=== PATIENT | male | born 1980 | race African-American/Black ===

== ENCOUNTER 2020-09-19 23:26 | Emergency (ER) | payer BC ==
[~2020-09-19] VITALS: Ht 170.2 cm; Wt 50.1 kg
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
--- NOTE | 2020-09-20 00:25 | RAD ---
Single view chest dated 09/20/2020: No comparison available. Clinical Indication: Shortness of breath and chest pain. Findings: Single upright portable exam of the chest was performed. Heart size and mediastinal contours are with in normal limits given technique. The lungs are clear without evidence of focal consolidation. Vascul ar interstitium is within normal limits. Impression:: Negative portable chest. Electronically signed by: Adolfo Valente MD (09/20/2020 12:23 AM) IVAN
[2020-09-20 00:51] VITALS: BP 106/69
--- NOTE | 2020-09-20 01:17 | EKG ---
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
== END 2020-09-20 01:07 | disposition home or self-care (01) ==
LOC: ER 23:26
DX: J06.9 Acute upper respiratory infection, unspecified (principal); J45.909 Unspecified asthma, uncomplicated; F17.200 Nicotine dependence, unspecified, uncomplicated
CPT/HCPCS: 71045; 93005; 99283